=== PATIENT | male | born 1970 | race Hispanic/Latino ===

== ENCOUNTER 2021-11-27 11:02 | Inpatient (IN) | payer MEDICARE ==
[~2021-11-27] VITALS: Ht 167.6 cm; Wt 127.0 kg
[~2021-11-27 11:02] MED LIST: ETOMIDATE 20MG VIAL IVP ONE; ROCURONIUM BROMIDE 10MG/1ML 5ML VL IV ONE
[2021-11-27 11:28] LABS: BASOPHILS % (AUTO) 0.2 % (0.0-5.0); EOSINOPHILS % (AUTO) 0.2 % (0.0-8.0); HEMATOCRIT 35.7 % (42-54); LYMPHOCYTES % (AUTO) 5.2 % (21.0-51.0); MEAN CORPUSCULAR HGB CONC 32.2 g/dL (32.0-36.0); MEAN CORPUSCULAR VOLUME 96.2 fL (79-99); MONOCYTES % (AUTO) 0.9 % (3.0-13.0); NEUTROPHILS % (AUTO) 93.3 % (40.0-77.0); PLATELET COUNT (AUTO) 181 K/uL (130-400); RED BLOOD CELL COUNT(AUTO) 3.71 MIL/uL (4.50-6.20); RED CELL DISTRIBUTION WIDTH 16.2 % (11.0-15.5); WHITE BLOOD COUNT (AUTO) 4.2 K/uL (4.8-10.8)
[2021-11-27 11:39] LABS: INR 1.13 (0.85-1.15); PROTHROMBIN TIME 12.2 SEC (9.6-11.6)
[2021-11-27 11:41] LABS: PARTIAL THROMBOPLASTIN TIME 27.4 SEC (26.3-35.5)
[2021-11-27 11:50] LABS: ALBUMIN 1.7 g/dL (3.5-5.0); TOTAL PROTEIN, SERUM 6.1 g/dL (6.0-8.3)
[2021-11-27] MEDS ORDERED: VANCOMYCIN 1G VIAL IVPB ONE (12:00)
[2021-11-27] MEDS ORDERED: ZOSYN 3.375GM +NS 50ML IV ONE (12:00)
[2021-11-27] MEDS ORDERED: 0.9%NACL 1000ML 1,000 ML IV ONE (12:00)
[2021-11-27] MEDS: NOREPINEPHRIN 4MG/NS 250ML 250 ML IV SCH (12:06)
[2021-11-27] MEDS ORDERED: METO50TA18 PO (12:29)
[2021-11-27] MEDS ORDERED: ONDANSETRON 4MG INJ IV PRN (12:30)
[2021-11-27] MEDS ORDERED: VANCOMYCIN PROTOCOL PER PHARMACY IV PRN ×2 (12:30→15:00)
[2021-11-27] MEDS ORDERED: DiphenhydrAMINE HCL 50 MG/ML VIAL IV PRN (12:30)
[2021-11-27] MEDS ORDERED: MAGNESIUM 2GM PREMIX 50ML 50 ML IV PRN (12:30)
[2021-11-27] MEDS ORDERED: POTASSIUM CHLORIDE 20MEQ/100ML 100 ML IV PRN (12:30)
[2021-11-27] MEDS ORDERED: KCL 20 MEQ ERTAB PO PRN (12:30)
[2021-11-27] MEDS ORDERED: CEFEPIME IV SCH (12:30)
[2021-11-27] MEDS ORDERED: DIPHENHYDRAMINE HCL 25 MG CAPSULE PO PRN (12:30)
[2021-11-27] MEDS ORDERED: GUAIFENESIN-DM 200/20 MG 10 ML PO PRN (12:30)
[2021-11-27] MEDS ORDERED: LIDOCAINE HCL-MPF 1% 2ML VIAL IV PRN (12:30)
[2021-11-27] MEDS ORDERED: LACTULOSE 20 GM/30 ML UDCUP PO PRN (12:30)
[2021-11-27] MEDS ORDERED: NITROGLYCERIN 0.4 MG SL TAB SL PRN (12:30)
[2021-11-27] MEDS ORDERED: ACETAMINOPHEN 325 MG TAB PO PRN ×2 (12:30)
[2021-11-27] MEDS ORDERED: MAG/ALUM/SIMETH 30 ML UDCUP PO PRN (12:30)
[2021-11-27] MEDS ORDERED: POTASSIUM CHLORIDE 10% ELIXIR 20 MEQ/15 ML UDCUP PO PRN (12:30)
[2021-11-27] MEDS ORDERED: ASPIRIN 300 MG SUPPOSITORY PR SCH (12:30)
[2021-11-27] MEDS ORDERED: [UNRECOGNIZED DRUG - OTHER] IV SCH (12:30)
[2021-11-27] MEDS ORDERED: NEPA3DRO OD (12:31)
[2021-11-27] MEDS ORDERED: INSU3INS5 SQ (12:33)
[2021-11-27] MEDS ORDERED: [UNRECOGNIZED DRUG - OTHER] (12:33)
[2021-11-27 12:58] LABS: ABG BASE EXCESS -6.2 mmol/L (-2.0-3.0); ABG HCO3 17.6 mmol/L (21.0-28.0); ABG OXYGEN SATURATION 88.3 % (95.0-99.0); ABG PCO2 31 mmHg (35-48)
[2021-11-27] MEDS ORDERED: CEFEPIME HCL 1 GM VIAL IVP SCH (13:00)
[2021-11-27] MEDS ORDERED: IOHEXOL 350 MG/ML 100ML INFUS..BTL IV ONE (13:01)
[2021-11-27] MEDS ORDERED: VANCOMYCIN 1.5 GM/250 ML BAG 250 ML IV SCH (13:30)
[2021-11-27] MEDS: PHARMACY COMMUNICATION MISC SCH ×4 (15:42→21:31)
[2021-11-27] MEDS: HEPARIN 5,000 UNIT VIAL SQ SCH ×2 (15:44→22:34)
[2021-11-27] MEDS ORDERED: EPINEPHRINE 1 MG/ML 30ML VIAL IJ ONE (20:46)
[2021-11-27 20:52] LABS: ABG BASE EXCESS -9.5 mmol/L (-2.0-3.0); ABG HCO3 13.7 mmol/L (21.0-28.0); ABG OXYGEN SATURATION 92.4 % (95.0-99.0); ABG PCO2 23 mmHg (35-48)
[2021-11-27] MEDS ORDERED: EPINEPHRINE 1MG/10ML(1:10,000) 0.1 MG/ML SYG IVP ONE (21:00)
[2021-11-27] MEDS ORDERED: FENTANYL 2500MCG+NS 250ML IV.SOLN IV SCH (21:00)
[2021-11-27] MEDS ORDERED: MIDAZOLAM 100MG-0.9% NS 100ML 100ML BAG IV ONE (21:00)
[2021-11-27] MEDS ORDERED: FAMOTIDINE 20MG TAB PO SCH (21:00)
[2021-11-27] MEDS ORDERED: PHENYLEPHRINE HCL 10 MG/ML 1ML VIAL IV ONE (21:15)
[2021-11-27 21:21] LABS: ABG BASE EXCESS -14.3 mmol/L (-2.0-3.0); ABG HCO3 14.8 mmol/L (21.0-28.0); ABG OXYGEN SATURATION 98.5 % (95.0-99.0); ABG PCO2 47 mmHg (35-48)
[2021-11-27 21:30] LABS: BASOPHILS % (AUTO) 0.4 % (0.0-5.0); EOSINOPHILS % (AUTO) 0.3 % (0.0-8.0); HEMATOCRIT 39.6 % (42-54); LYMPHOCYTES % (AUTO) 10.2 % (21.0-51.0); MEAN CORPUSCULAR HEMOGLOBIN 30.6 pg (27.0-33.0); MEAN CORPUSCULAR HGB CONC 30.6 g/dL (32.0-36.0); MEAN CORPUSCULAR VOLUME 100.3 fL (79-99); MONOCYTES % (AUTO) 2.4 % (3.0-13.0); NEUTROPHILS % (AUTO) 86.2 % (40.0-77.0); NUCLEATED RED BLOOD CELLS 0.2 % (0.0-0.19); PLATELET COUNT (AUTO) 202 K/uL (130-400); RED BLOOD CELL COUNT(AUTO) 3.95 MIL/uL (4.50-6.20); RED CELL DISTRIBUTION WIDTH 16.3 % (11.0-15.5); WHITE BLOOD COUNT (AUTO) 15.9 K/uL (4.8-10.8)
[2021-11-27] MEDS ORDERED: PHENYLEPHRINE HCL 100 MG in 0.9% NACL 250ML 250 ML IV SCH (21:30)
[2021-11-27] MEDS: PHENYLEPHRINE HCL 10/NS 250ML IV PRN ×2 (21:31)
[2021-11-27] MEDS: EPINEPHRINE IV SCH (21:32)
[2021-11-27] MEDS: NACL 0.9% IV SCH (21:32)
[2021-11-27 21:47] LABS: ALBUMIN 1.6 g/dL (3.5-5.0); CREATININE 5.5 mg/dL (0.5-1.5); POTASSIUM 4.7 mmol/L (3.5-5.1); TOTAL PROTEIN, SERUM 6.5 g/dL (6.0-8.3)
[2021-11-27 21:54] LABS: B-TYPE NATRIURETIC PEPTIDE 2790 pg/mL (0-100)
[2021-11-27] MEDS: FAMOTIDINE 20MG VIAL IV SCH (22:34)
[2021-11-27] MEDS: MEROPENEM 1 GM VIAL IVP SCH (22:35)
[2021-11-28] MEDS: NACL 0.9% IV SCH (00:37)
[2021-11-28] MEDS: EPINEPHRINE IV SCH (00:37)
[2021-11-28] MEDS: NOREPINEPHRIN 4MG/NS 250ML 250 ML IV SCH (00:58)
[2021-11-28] MEDS ORDERED: PHENYLEPHRINE HCL 10 MG/ML 1ML VIAL IV ONE ×2 (02:29→06:43)
[2021-11-28] MEDS: PHENYLEPHRINE HCL 10/NS 250ML IV PRN ×2 (02:35)
[2021-11-28] MEDS ORDERED: NOREPINEPHRINE BITARTRATE 1 MG/1 ML ML IV ONE ×3 (04:35→06:49)
[2021-11-28 05:02] LABS: BASOPHILS % (AUTO) 0.4 % (0.0-5.0); HEMATOCRIT 40.3 % (42-54); LYMPHOCYTES % (AUTO) 7.8 % (21.0-51.0); MEAN CORPUSCULAR HEMOGLOBIN 30.2 pg (27.0-33.0); MEAN CORPUSCULAR HGB CONC 30.8 g/dL (32.0-36.0); MEAN CORPUSCULAR VOLUME 98.1 fL (79-99); MONOCYTES % (AUTO) 2.9 % (3.0-13.0); NEUTROPHILS % (AUTO) 88.3 % (40.0-77.0); NUCLEATED RED BLOOD CELLS 0.7 % (0.0-0.19); PLATELET COUNT (AUTO) 192 K/uL (130-400); RED BLOOD CELL COUNT(AUTO) 4.11 MIL/uL (4.50-6.20); RED CELL DISTRIBUTION WIDTH 16.7 % (11.0-15.5); WHITE BLOOD COUNT (AUTO) 21.2 K/uL (4.8-10.8)
[2021-11-28] MEDS: PHARMACY COMMUNICATION MISC SCH (05:21)
[2021-11-28] MEDS ORDERED: NOREPINEPHRINE 8MG/NS 250ML PREMIX IV SCH (05:30)
[2021-11-28 05:33] LABS: ALBUMIN 1.5 g/dL (3.5-5.0); CREATININE 5.4 mg/dL (0.5-1.5); PHOSPHORUS 5.4 mg/dL (2.5-4.9); POTASSIUM 5.3 mmol/L (3.5-5.1); THYROID STIMULATING HORMONE 6.36 uIU/mL (0.36-3.74); TOTAL PROTEIN, SERUM 6.4 g/dL (6.0-8.3)
[2021-11-28] MEDS: FAMOTIDINE 20MG VIAL IV SCH (07:58)
[2021-11-28] MEDS: HEPARIN 5,000 UNIT VIAL SQ SCH (07:59)
[2021-11-28] MEDS: MEROPENEM 1 GM VIAL IVP SCH (07:59)
[2021-11-28 08:02] VITALS: BP 106/43
[2021-11-28] MEDS ORDERED: VANCOMYCIN PROTOCOL PER PHARMACY IV SCH (08:30)
[2021-11-28] MEDS ORDERED: SODIUM BICARB 50MEQ 50ML VIAL 100 ML ONE ×2 (08:37→08:43)
[2021-11-28] MEDS ORDERED: SODIUM BICARB 50MEQ 50ML VIAL 50 ML ONE (08:41)
[2021-11-28] MEDS ORDERED: DEXTROSE 5%-WATER 250 ML IV ONE (08:42)
== END 2021-11-28 08:49 | DRG 871 ==
LOC: EDH 11:02 → EDHIP 12:03
PROVIDERS: ADMIT Internal Medicine; ATTEND Internal Medicine
PROC: 5A1935Z Respiratory Ventilation, Less than 24 Consecutive Hours (ICD-10-PCS; principal; 2021-11-27)
PROC: 0BH17EZ Insertion of Endotracheal Airway into Trachea, Via Natural or Artificial Opening (ICD-10-PCS; 2021-11-27)
PROC: 5A1D70Z Performance of Urinary Filtration, Intermittent, Less than 6 Hours Per Day (ICD-10-PCS; 2021-11-28)
DX: A41.50 Gram-negative sepsis, unspecified (principal); G92.8 Other toxic encephalopathy; I21.4 Non-ST elevation (NSTEMI) myocardial infarction; J96.00 Acute respiratory failure, unspecified whether with hypoxia or hypercapnia; N18.6 End stage renal disease; R65.21 Severe sepsis with septic shock; M62.82 Rhabdomyolysis; L03.116 Cellulitis of left lower limb; L03.115 Cellulitis of right lower limb; I12.0 Hypertensive chronic kidney disease with stage 5 chronic kidney disease or end stage renal disease; Z20.822 Contact with and (suspected) exposure to COVID-19; J11.1 Influenza due to unidentified influenza virus with other respiratory manifestations; E78.5 Hyperlipidemia, unspecified; E66.01 Morbid (severe) obesity due to excess calories; D63.1 Anemia in chronic kidney disease; E11.22 Type 2 diabetes mellitus with diabetic chronic kidney disease; E11.319 Type 2 diabetes mellitus with unspecified diabetic retinopathy without macular edema; Z99.2 Dependence on renal dialysis; Z82.49 Family history of ischemic heart disease and other diseases of the circulatory system; Z51.5 Encounter for palliative care
CPT/HCPCS: 31500; 36415; 36600; 71045; 80053; 82140; 82435; 82550; 82803; 82947; 82948; 83605; 83735; 83880; 84100; 84132; 84145; 84295; 84443; 84484; 85018; 85025; 85610; 85730; 87040; 87077; 87186; 87635; 87804; 90935; 92950; 93005; 94002; 94003; 99291; G0378; J0171; J0692; J1644; J2185; J2370; J2405; J2543; J3010; J3490; J7050; J7060; Q9967